=== PATIENT | female | born 1950 | race Caucasian/White ===

== ENCOUNTER 2021-12-05 20:57 | Emergency (ER) | payer MEDICARE, BC ==
[~2021-12-05] VITALS: Ht 165.1 cm; Wt 86.4 kg
[2021-12-05] MEDS ORDERED: NORVASC 10MG10 MG PO (21:53)
[2021-12-05] MEDS ORDERED: COZAAR100 MG PO (21:54)
[2021-12-05] MEDS ORDERED: HCTZ 25MG TAB25 MG PO (21:54)
[2021-12-05] MEDS ORDERED: SYNTHROID 0.0.025 MG PO (21:55)
[2021-12-05] MEDS ORDERED: PRILOTC (21:55)
[2021-12-05] MEDS ORDERED: BENTYL 20MG20 MG/TAB PO (21:55)
[2021-12-05 22:03] VITALS: TEMP 97.6
[2021-12-05 22:08] LABS: ALBUMIN 3.9 gm/dL (3.4-4.8); BILIRUBIN,TOTAL 0.3 mg/dL (0.2-1.2); CALCIUM 9.4 mg/dL (8.4-10.2); CREATININE, serum 1.49 mg/dL (0.57-1.11); TOTAL PROTEIN 7.1 gm/dL (6.2-8.1)
[2021-12-05 22:09] LABS: POTASSIUM 2.9 mmol/L (3.5-4.5)
[2021-12-05] MEDS ORDERED: K-DUR20 MEQ PO (22:42)
[2021-12-05 23:22] VITALS: BP 129/67; PULSE 80
== END 2021-12-05 23:38 | disposition home or self-care (01) ==
LOC: COL.ER 20:57
PROVIDERS: Emergency Medicine
DX: E87.6 Hypokalemia (principal); E86.0 Dehydration; N17.9 Acute kidney failure, unspecified; E87.1 Hypo-osmolality and hyponatremia; Z28.310 Unvaccinated for COVID-19
CPT/HCPCS: J3480; J7030